=== PATIENT | male | born 1955 | race Two or more races ===

== ENCOUNTER 2024-04-06 12:36 | Outpatient (CLI) | payer OTHER ==
[~2024-04-06 12:36] MED LIST: INSULINA
== END 2024-04-06 12:38 | disposition home or self-care (01) ==
LOC: NUCLEAR 12:36
PROVIDERS: ATTEND Internal Medicine Sports Medicine
DX: C73 Malignant neoplasm of thyroid gland (principal); E89.0 Postprocedural hypothyroidism
CPT/HCPCS: 79005; A9517

== ENCOUNTER 2024-04-12 11:53 | Outpatient (CLI) | payer OTHER | END 2024-04-12 11:54 | disposition home or self-care (01) | LOC: NUCLEAR 11:53 | PROVIDERS: ATTEND Internal Medicine Sports Medicine | DX: C73 Malignant neoplasm of thyroid gland (principal); E89.0 Postprocedural hypothyroidism | CPT/HCPCS: 78018; A9528 ==

== ENCOUNTER 2024-11-06 06:45 | Day surgery (SDC) | payer OTHER ==
[2024-10-31 10:18] LABS: PH,URINE 5.5 (5.0-8.0); URINE APPEARANCE Clear; URINE BILIRRUBIN Negative (NEGATIVE); URINE BLOOD Negative; URINE COLOR Yellow; URINE KETONE Negative (NEGATIVE); URINE LEUKOCYTE Negative; URINE NITRATE Negative; URINE PROTEIN Trace (NEGATIVE); URINE UROBILINOGEN 0.2 E.U./dl
[2024-10-31 10:21] VITALS: BP 144/79
[2024-10-31 10:23] LABS: URINE BACTERIA 13.4 uL (0.0-1933); URINE EPITHELIAL CELLS 14.4 uL (0.0-38.8); URINE RBC 9.4 uL (0.0-20.8); URINE WBC 14.2 uL (0.0-23.2)
[2024-10-31 10:23] LABS: HEMATOCRIT 42.9 % (39.0-48.0); HEMOGLOBIN 14.6 g/dL (13-16.00); MEAN CORPUSCULAR HEMOGLOBIN 31.2 pg (27.00-32.0); PLATELET COUNT 193 K/uL (150-450); RED BLOOD COUNT 4.66 M/uL (4.00-6.00); RED CELL DISTRIBUTION WIDTH 15.4 % (11.5-14.5)
[2024-10-31 10:32] LABS: URINE CAST 0.14 uL (0.0-1.40); URINE GLUCOSE >=1000 MG/DL (NEGATIVE)
[2024-10-31 11:01] LABS: INR 1.03; PARTIAL THROMBOPLASTIN TIME 27.7 SECONDS (22.0-34.0); PROTHROMBIN TIME 11.2 SECONDS (9.0-11.5)
[2024-10-31 11:05] LABS: ALBUMIN 3.9 gm/dL (3.4-5.0); BILIRUBIN TOTAL 0.64 mg/dL (0.3-1.2); CALCIUM 9.2 mg/dL (8.5-10.1); CREATININE SERUM 0.85 mg/dL (0.70-1.30); GFR 89.9; GLOBULINA 3.6 G/DL (2.4-3.5); POTASSIUM 4.95 mEq/L (3.5-5.1); TOTAL PROTEIN 7.5 gm/dL (6.4-8.2)
[~2024-11-06] VITALS: Ht 152.4 cm; Wt 89.4 kg
[~2024-11-06 06:45] MED LIST changes: +FARXIGA10 MG; +HUMALO; +LAMISIL; +LANTUS; +NEURONTIN300 MG; +OMEGA-31000 MG; +PEPCID 40MG; +PLAVIX75 MG; +PROTONIX40 MG; +SYNTHROID137 MCG; +VITAMIN D; +ZOCOR40 MG
[2024-11-06] MEDS ORDERED: CEFAZOLIN SODIUM 1,000 MG VIAL ONE (08:49)
[2024-11-06] MEDS ORDERED: DEXAMETHASONE SODIUM PHOSPHATE 4 MG/ML VIAL ONE (08:52)
[2024-11-06 14:57] VITALS: BP 154/80; O2SAT 100
== END 2024-11-06 15:00 | disposition home or self-care (01) ==
LOC: O/R 06:45 → CIR.AMB 06:45 → SURH 06:45 → EDSTATUS 07:30 → SURH 11:45 → CIR.AMB 15:00 → O/R 15:00
PROVIDERS: ATTEND Surgery
DX: C73 Malignant neoplasm of thyroid gland (principal); C77.0 Secondary and unspecified malignant neoplasm of lymph nodes of head, face and neck; Z88.8 Allergy status to other drugs, medicaments and biological substances